=== PATIENT | female | born 1995 | race Two or more races ===

== ENCOUNTER 2019-02-26 22:26 | Emergency (ER) | payer SELFPAY ==
[~2019-02-26] VITALS: Ht 165.1 cm; Wt 56.7 kg
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
[2019-02-26 22:49] VITALS: BP 158/99
--- NOTE | 2019-02-26 23:03 | NUR ---
ED Nurse Note: pt off to xray.
[2019-02-26] MEDS ORDERED: IBUPROFEN600 MG ORAL (23:24)
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
--- NOTE | 2019-02-26 23:28 | NUR ---
ED Nurse Note: pt cleared to be d/c per ERMD, pt discharge and aftercare instruction provided w/ prescription, pt education done via discussion and handout, pt advised to follow up with pcp or return to ed if changes in condition, pt verbalized understanding and agrees with plan, vss, ambulatory w/ steady gait, left w/ all belongings. pt accompanied by friend.
[2019-02-26 23:29] VITALS: BP 158/99
--- NOTE | 2019-02-27 14:12 | Diagnostic Imaging Report ---
Indication: Neck pain Technique: 3 views of the cervical spine Comparison: none Findings: Bony alignment is normal. Vertebral body heights are preserved. Disc spaces are preserved. No acute fractures. No dislocations. No prevertebral soft tissue swelling. Impression: Negative
== END 2019-02-26 23:29 | disposition home or self-care (01) ==
LOC: EMR 23:15
DX: S10.93XA Contusion of unspecified part of neck, initial encounter (principal); V43.62XA Car passenger injured in collision with other type car in traffic accident, initial encounter; Y92.410 Unspecified street and highway as the place of occurrence of the external cause
CPT/HCPCS: 72040; 99283